=== PATIENT | female | born 1985 | race Caucasian/White ===

== ENCOUNTER 2018-11-13 14:30 | Emergency (ER) | payer MEDICAID, OTHER ==
[~2018-11-13] VITALS: Ht 157.5 cm; Wt 64.7 kg
[2018-11-13 14:35] VITALS: Ht 157.5 cm; Wt 64.7 kg
[2018-11-13] MEDS ORDERED: ACETAMINOPHEN 325 MG TAB PO STA (15:08)
[2018-11-13 17:53] VITALS: BP 117/65; PULSE 71; RESP 18
--- NOTE | 2018-11-13 17:57 | ERD ---
ER Documentation Chief Complaint Chief Complaint INTERMITTENT SHARP PELVIC PAIN SINCE THIS MORNING; 6-WKS HPI This is a 33-year-old female patient who presents emergency room with complaint of sharp vaginal pain, back pain, nausea starting today. Patient is 6 weeks . Discovered 2 [address] care [address] Dr. Hare at [facility]. Patient denies vaginal bleeding, fever, abd pain. Denies dy suria. Patient states her last , 12 years ago, resulted in labor starting at 3 months gestation requiring frequent hospitalizations. First child was born at full-term without complications. LMP: 09/28/18 BETHANY: 07/05/18 ROS All systems reviewed and are negative except as per history of present illness. Allergies Allergies: Coded Allergies: No Known Allergy (Unverified Allergy, Unknown, 07/02/06) PMhx/Soc Medical and Surgical Hx: pt denies Medical Hx Hx Alcohol Use: No Hx Substance Use: No Hx Tobacco Use: No Smoking Status: Never smoker FmHx Family History: No diabetes, No coronary disease, No other Physical Exam Vitals Vital Signs Date Temp Pulse Resp B/P (MAP) Pulse Ox O2 O2 Flow FiO2 Time Delivery Rate 11/13/18 71 18 117/65 99 Room Air 17:53 (82) 11/13/18 99.1 75 16 115/61 99 14:35 (79) Physical Exam Const: No acute distress Head: Atraumatic Eyes: Normal Conjunctiva, PERRL ENT: Normal External Ears, Nose and Mouth. Pharynx pink, moist, no lesions or exudates. Neck: Full range of motion. No meningismus. Lymphadenopathy Resp: Clear to auscultation bilaterally Cardio: Regular rate and rhythm, no murmurs Abd: Soft, non distended. Normal bowel sounds. No pain to palpation. Skin: No petechiae or rashes Back: No midline or flank tenderness, no CVT tenderness, no spinal tenderness Ext: No cyanosis, or edema Neur: Awake and alert Psych: Normal Mood and Affect Result Diagram: 11/13/18 1515 11/13/18 1515 Results 24 hrs Laboratory Tests Test 11/13/18 15:15 White Blood Count 11.2 10^3/ul Red Blood Count 4.09 10^6/ul Hemoglobin 12.6 g/dl Hematocrit 38.4 % Mean Corpuscular Volume 93.9 fl Mean Corpuscular Hemoglobin 30.8 pg Mean Corpuscular Hemoglobin Concent 32.8 g/dl Red Cell Distribution Width 12.5 % Platelet Count 256 10^3/UL Mean Platelet Volume 10.6 fl Immature Granulocytes % 0.400 % Neutrophils % 74.0 % Lymphocytes % 15.3 % Monocytes % 8.7 % Eosinophils % 1.2 % Basophils % 0.4 % Nucleated Red Blood Cells % 0.0 /100WBC Immature Granulocytes # 0.040 10^3/ul Neutrophils # 8.3 10^3/ul Lymphocytes # 1.7 10^3/ul Monocytes # 1.0 10^3/ul Eosinophils # 0.1 10^3/ul Basophils # 0.0 10^3/ul Nucleated Red Blood Cells # 0.0 10^3/ul Urine Color YELLOW Urine Clarity SLIGHTLY CLOUDY Urine pH 6.0 Urine Specific [place] 1.013 Urine Ketones TRACE mg/dL Urine Nitrite NEGATIVE mg/dL Urine Bilirubin NEGATIVE mg/dL Urine Urobilinogen NEGATIVE mg/dL Urine Leukocyte Esterase TRACE Ken/ul Urine Microscopic RBC 2 /HPF Urine Microscopic WBC 5 /HPF Urine Squamous Epithelial Cells MODERATE /HPF Urine Hemoglobin 1+ mg/dL Urine Glucose NEGATIVE mg/dL Urine Total Protein NEGATIVE mg/dl Sodium Level 137 mmol/L Potassium Level 3.6 mmol/L Chloride Level 104 mmol/L Carbon Dioxide Level 24 mmol/L Anion Gap 9 Blood Urea Nitrogen 12 mg/dl Creatinine 0.57 mg/dl Est Glomerular Filtrat Rate mL/min > 60 mL/min Glucose Level 85 mg/dl Calcium Level 8.7 mg/dl Beta HCG, Quantitative 84187.0 mIU/ml Current Medications Medications Dose Sig/Ling Start Time Status Last (Trade) Ordered Route PRN Stop Time Admin Dose Reason Admin 650 mg ONCE STAT 11/13/18 DC 11/13/18 Acetaminophen PO 15:08 15:15 (Tylenol 11/13/18 15:12 Tab) Procedures/MDM PROCEDURES/MDM DIAGNOSTIC IMAGING: Read by radiologist. OB US IMPRESSION: 1. Single live intrauterine fetus which by ultrasound corresponds to a gesta tional age of 6 weeks 5 days plus or minus 3 weeks. The estimated date of delivery based on today's sonogram is 07/04/2019. 2. A 2.9 x 2.6 x 1.9 cm intramural fibroid is seen within the anterior uterine fundus. 3. A 2.5 cm in maximal diameter left ovarian corpus lutein cyst is evident. The right ovary appears normal. Vascular flow is demonstrated in each ovary on Doppler. 4. No adnexal mass or free fluid is identified. LAB INTERPRETATION: No anemia, no electrolyte imbalance, no leukocytosis, no elevated transaminase, urine without abnormal levels of ketones, nitrates, leukocytes, hemoglobin. Beta hCG within limits for gestation. -Medications: Tylenol. Patient tolerated medication well with no adverse reactions. Patient reported improvement in pain. MDM: Patient remained stable throughout the ER course. Differential includes early normal , ectopic , failed . She will discharged home with recommendations for 2-day recheck of hormones to further evaluate condition. She is to return sooner for fevers, hemorrhaging, new worsening symptoms. Current signs or symptoms do not suggest appendicitis, acute surgical abdomen, additional concerning signs or symptoms or conditions. The patient was stable with no new complaints during the ER course. Clinically, there is no current evidence to suggest meningitis, sepsis, acute abdomen, pneumonia, stroke , acute coronary syndrome, pulmonary embolism, aortic dissection or any other emergent condition appearing to require further evaluation or hospitalization. Patient counseled regarding my diagnostic impression and care plan. Prior to discharge all questions answered. Pt agrees with treatment plan and understands strict return precautions. Pt is instructed to follow up with OB within 24-48 hours. Precautionary instructions provided including instructions to return to the ER if not improving or for any worsening or changing symptoms or concerns. DISPOSITION and PLAN: The patient has been discharge home to follow-up with community physician. Departure Diagnosis: Primary Impression: -related symptom in first trimester Condition: Stable Patient Instructions: : Your First Trimester Changes Referrals: [facility] YOU HAVE RECEIVED A MEDICAL SCREENING EXAM AND THE RESULTS INDICATE THAT YOU DO NOT HAVE A CONDITION THAT REQUIRES URGENT TREATMENT IN THE EMERGENCY DEPARTMENT. FURTHER EVALUATION AND TREATMENT OF YOUR CONDITION CAN WAIT UNTIL YOU ARE SEEN IN YOUR DOCTORS OFFICE WITHIN THE NEXT 1-2 DAYS. IT IS YOUR RESPONSIBILITY TO MAKE AN APPOINTMENT FOR FOLOW-UP CARE. IF YOU HAVE A PRIMARY DOCTOR --you should call your primary doctor and schedule an appointment IF YOU DO NOT HAVE A PRIMARY DOCTOR YOU CAN CALL OUR PHYSICIAN REFERRAL HOTLINE AT IF YOU CAN NOT AFFORD TO SEE A PHYSICIAN YOU CAN CHOSE FROM THE FOLLOWING [facility] [address] [facility] [address] [facility] [facility] [facility] [address] [facility] [address] [facility] [address] [facility] [facility] [address] Additional Instructions: Thank you very much for allowing us to participate in your care. Your health and safety is our top priority at [facility]. Call your primary care doctor TOMORROW for an appointment during the next 2-4 days and bring all the information and medications prescribed. Have prescriptions filled and follow precisely the directions on the label. If the symptoms get worse and your provider is unavailable, return to the Emergency Department immediately. CALVIN ROBERTSON NP Nov 13, 2018 17:57
== END 2018-11-13 17:54 | disposition home or self-care (01) ==
LOC: FTE 14:30
DX: O26.891 Other specified pregnancy related conditions, first trimester (principal); R10.2 Pelvic and perineal pain; O99.89 Other specified diseases and conditions complicating pregnancy, childbirth and the puerperium; M54.9 Dorsalgia, unspecified; O21.9 Vomiting of pregnancy, unspecified; Z3A.01 Less than 8 weeks gestation of pregnancy
CPT/HCPCS: 36415; 76801; 76817; 80048; 81001; 84702; 85025; 86900; 86901; 87086; Z7502; Z7610

== ENCOUNTER 2018-11-22 22:38 | Emergency (ER) | payer OTHER ==
[~2018-11-22] VITALS: Ht 162.6 cm; Wt 63.2 kg
[2018-11-22 22:47] VITALS: Ht 162.6 cm; Wt 63.2 kg
[2018-11-23] MEDS ORDERED: ONDANSETRON 4 MG INJ IV STA (02:14)
[2018-11-23] MEDS ORDERED: SOD CHLORIDE 0.9% 1,000 ML IV STA (02:14)
--- NOTE | 2018-11-23 02:21 | ERD ---
ER Documentation Chief Complaint Chief Complaint VOMIT X'S 2 DAYS, 7 WEEKS PG HPI 33-year-old female with no significant past medical history who is A0 reportedly 7 weeks presenting to the emergency department with com plaints of intermittent nausea and vomiting which began yesterday. She states she had 10 episodes of nonbilious and nonbloody vomiting today. She also reports constipation and hard stools and mild amount of blood in the stool when passing hard stools. She denies any vaginal bleeding, pelvic pain, vaginal discharge, or other symptoms. ROS All systems reviewed and are negative except as per history of present illness. Medications Home Meds Active Scripts Magnesium Citrate* (Magnesium Citrate*) 296 Ml Solution, 296 ML PO ONCE, #2 BOTTLE Prov:RADU CHEN PA-C 11/23/18 Doxylamine/Pyridoxine Hcl (DICLEGIS DR 10-10 MG TABLET) 1 Each Tablet., 1 TAB PO DAILY, #20 TAB Prov:RADU CHEN PA-C 11/23/18 Allergies Allergies: Coded Allergies: No Known Allergy (Unverified Allergy, Unknown, 07/02/06) PMhx/Soc Medical and Surgical Hx: pt denies Medical Hx Hx Alcohol Use: No Hx Substance Use: No Hx Tobacco Use: No FmHx Family History: No diabetes Physical Exam Vitals Vital Signs Date Temp Pulse Resp B/P (MAP) Pulse Ox O2 O2 Flow FiO2 Time Delivery Rate 11/23/18 98.3 68 18 124/65 100 Room Air 05:05 (84) 11/22/18 98.8 79 18 127/60 100 22:47 (82) Physical Exam Const: No acute distress Head: Atraumatic Eyes: Normal Conjunctiva ENT: Normal External Ears, Nose and Mouth. Neck: Full range of motion. No meningismus. Resp: Clear to auscultation bilaterally Cardio: Regular rate and rhythm, no murmurs Abd: Soft, non tender, non distended. Normal bowel sounds. No rebound tenderness or guarding. No McBurney's point tenderness. No pelvic tenderness on palpation. Skin: No petechiae or rashes Back: No midline or flank tenderness Ext: No cyanosis, or edema Neur: Awake and alert Psych: Normal Mood and Affect Result Diagram: 11/23/18 0230 11/23/18 0230 Results 24 hrs Laboratory Tests Test 11/23/18 02:30 11/23/18 02:40 White Blood Count 9.6 10^3/ul Red Blood Count 4.12 10^6/ul Hemoglobin 12.8 g/dl Hematocrit 37.1 % Mean Corpuscular Volume 90.0 fl Mean Corpuscular Hemoglobin 31.1 pg Mean Corpuscular Hemoglobin Concent 34.5 g/dl Red Cell Distribution Width 12.5 % Platelet Count 227 10^3/UL Mean Platelet Volume 11.1 fl Immature Granulocytes % 0.300 % Neutrophils % 74.0 % Lymphocytes % 17.0 % Monocytes % 7.5 % Eosinophils % 0.9 % Basophils % 0.3 % Nucleated Red Blood Cells % 0.0 /100WBC Immature Granulocytes # 0.030 10^3/ul Neutrophils # 7.1 10^3/ul Lymphocytes # 1.6 10^3/ul Monocytes # 0.7 10^3/ul Eosinophils # 0.1 10^3/ul Basophils # 0.0 10^3/ul Nucleated Red Blood Cells # 0.0 10^3/ul Urine Color YELLOW Urine Clarity SLIGHTLY CLOUDY Urine pH 6.0 Urine Specific [place] 1.018 Urine Ketones NEGATIVE mg/dL Urine Nitrite NEGATIVE mg/dL Urine Bilirubin NEGATIVE mg/dL Urine Urobilinogen NEGATIVE mg/dL Urine Leukocyte Esterase NEGATIVE Ken/ul Urine Microscopic RBC 0 /HPF Urine Microscopic WBC 3 /HPF Urine Squamous Epithelial Cells FEW /HPF Urine Mucus FEW /HPF Urine Hemoglobin 1+ mg/dL Urine Glucose NEGATIVE mg/dL Urine Total Protein NEGATIVE mg/dl Sodium Level 143 mmol/L Potassium Level 4.0 mmol/L Chloride Level 106 mmol/L Carbon Dioxide Level 27 mmol/L Anion Gap 10 Blood Urea Nitrogen 11 mg/dl Creatinine 0.62 mg/dl Est Glomerular Filtrat Rate mL/min > 60 mL/min Glucose Level 88 mg/dl Calcium Level 9.9 mg/dl Total Bilirubin 0.4 mg/dl Direct Bilirubin 0.00 mg/dl Indirect Bilirubin 0.4 mg/dl Aspartate Amino Transf (AST/SGOT) 18 IU/L Alanine Aminotransferase (ALT/SGPT) 14 IU/L Alkaline Phosphatase 60 IU/L Total Protein 7.1 g/dl Albumin 4.1 g/dl Globulin 3.00 g/dl Albumin/Globulin Ratio 1.36 Lipase 35 U/L POC Beta HCG, Qualitative POSITIVE Current Medications Medications Dose Sig/Ling Start Time Status Last (Trade) Ordered Route PRN Stop Time Admin Dose Reason Admin Sodium 1,000 ml @ Q1H STAT 11/23/18 DC 11/23/18 Chloride 1,000 mls/hr IV 02:14 11/23/18 02:41 03:13 Ondansetron 4 mg ONCE STAT 11/23/18 DC 11/23/18 HCl (Zofran IV 02:14 11/23/18 02:41 Inj) 02:15 Magnesium 300 ml ONCE ONCE 11/23/18 DC 11/23/18 Citrate PO 02:30 11/23/18 02:42 (Citroma) 02:31 Procedures/MDM 33-year-old female is presenting with signs and symptoms most consistent with hyperemesis gravidarum. Patient had no pelvic tenderness palpation and her vital signs are stable. She had ultrasound here recently which showed an intrauterine uterine with heart tones present. No indication for repeat ultrasound at this time. CBC and CMP were within normal limits. Patient was administered IV Zofran, IV fluids, magnesium citrate in the department with good response. No evidence of ectopic , tubo-ovarian abscess, severe dehydration, acute surgical abdomen, bowel obstruction or other emergencies. Patient stable and appropriate for discharge and further outpatient management after treatment in the department. Patient was advised to return to the department immediately for any new or worsening or concerning symptoms. She was in agreement with the diagnosis, plan company for follow-up, return precautions. Departure Diagnosis: Primary Impression: Hyperemesis gravidarum Condition: RADU Ruff PA-C Nov 23, 2018 02:21
[2018-11-23] MEDS ORDERED: MAGNESIUM CITRATE 300 ML BTL PO ONE (02:30)
[2018-11-23] MEDS ORDERED: DOXY1TAB3 PO (03:45)
[2018-11-23] MEDS ORDERED: MAGN296S40 PO (03:46)
[2018-11-23 05:05] VITALS: BP 124/65; PULSE 68; RESP 18
== END 2018-11-23 05:05 | disposition home or self-care (01) ==
LOC: FTE 22:38
DX: O21.0 Mild hyperemesis gravidarum (principal); Z3A.01 Less than 8 weeks gestation of pregnancy
CPT/HCPCS: 36415; 80053; 81001; 81025; 83690; 85025; 96360; J2405; J7030; Z7502; Z7610

== ENCOUNTER 2018-12-16 06:23 | Emergency (ER) | payer OTHER ==
[~2018-12-16] VITALS: Ht 162.6 cm; Wt 62.7 kg
[~2018-12-16 06:23] MED LIST: ACET325T33 PO; DOXY1TAB3 PO; MAGN296S40 PO
[2018-12-16 06:25] VITALS: BP 112/63; PULSE 71; RESP 20; Ht 162.6 cm; Wt 62.7 kg
[2018-12-16] MEDS ORDERED: ACETAMINOPHEN 500 MG TAB PO STA (08:12)
--- NOTE | 2018-12-16 13:37 | ERD ---
ER Documentation Chief Complaint Chief Complaint pelvic pain/back pain , vaginal spotting - ; LMP 09/28/18 HPI 33-year-old female presenting with vaginal spotting and back pain. Patient states that she is about 11 weeks and last. Is 09/28/2018. G4, . No clots. [facility] is Dr. Hare. Ultrasound was normal prior to today's date. Denies other medical problems. NKDA. Surgical history of jaw surgery. Social history denies ROS All systems reviewed and are negative except as per history of present illness. Medications Home Meds Active Scripts Acetaminophen* (Tylenol*) 325 Mg Tablet, 2 TAB PO Q6 PRN for PAIN AND OR ELEVATED TEMP, #20 TAB Prov:UZMA BHAT PA-C 12/16/18 Magnesium Citrate* (Magnesium Citrate*) 296 Ml Solution, 296 ML PO ONCE, #2 BOTTLE Prov:RADU CHEN PA-C 11/23/18 Doxylamine/Pyridoxine Hcl (SELENE TAMAYO 10-10 MG TABLET) 1 Each Tablet., 1 TAB PO DAILY, #20 TAB Prov:RADU CHEN PA-C 11/23/18 Allergies Allergies: Coded Allergies: No Known Allergy (Unverified Allergy, Unknown, 07/02/06) PMhx/Soc Medical and Surgical Hx: pt denies Medical Hx History of Surgery: Yes (reconstructive jaw sx) Anesthesia Reaction: No Hx Alcohol Use: No Hx Substance Use: No Hx Tobacco Use: No Smoking Status: Never smoker FmHx Family History: No diabetes, No coronary disease, No other Physical Exam Vitals Vital Signs Date Temp Pulse Resp B/P (MAP) Pulse Ox O2 O2 Flow FiO2 Time Delivery Rate 12/16/18 98.6 71 20 112/63 100 06:25 (79) Physical Exam GENERAL: The patient is well-appearing, well-nourished, in no acute distress HEENT: Atraumatic. Conjunctivae are pink. Pupils equal, round, and reactive to light. There is no scleral icterus. Tympanic membranes clear bilaterally. Oropharynx clear. CHEST: Clear to auscultation bilaterally. There are no rales, wheezes or rhonchi. HEART: Regular rate and rhythm. No murmurs, clicks, rubs or gallops. ABDOMEN:Soft, nontender and nondistended. Good bowel sounds. No rebound or guarding. No gross peritonitis. No gross organomegaly or masses. BACK: No midline or flank tenderness. Result Diagram: 12/16/1859 Results 24 hrs Laboratory Tests Test 12/16/18 06:59 White Blood Count 7.0 10^3/ul Red Blood Count 3.94 10^6/ul Hemoglobin 12.2 g/dl Hematocrit 36.5 % Mean Corpuscular Volume 92.6 fl Mean Corpuscular Hemoglobin 31.0 pg Mean Corpuscular Hemoglobin Concent 33.4 g/dl Red Cell Distribution Width 12.5 % Platelet Count 217 10^3/UL Mean Platelet Volume 11.0 fl Immature Granulocytes % 0.600 % Neutrophils % 72.4 % Lymphocytes % 18.7 % Monocytes % 6.9 % Eosinophils % 1.1 % Basophils % 0.3 % Nucleated Red Blood Cells % 0.0 /100WBC Immature Granulocytes # 0.040 10^3/ul Neutrophils # 5.1 10^3/ul Lymphocytes # 1.3 10^3/ul Monocytes # 0.5 10^3/ul Eosinophils # 0.1 10^3/ul Basophils # 0.0 10^3/ul Nucleated Red Blood Cells # 0.0 10^3/ul Urine Color YELLOW Urine Clarity SLIGHTLY CLOUDY Urine pH 6.0 Urine Specific [place] 1.015 Urine Ketones NEGATIVE mg/dL Urine Nitrite NEGATIVE mg/dL Urine Bilirubin NEGATIVE mg/dL Urine Urobilinogen NEGATIVE mg/dL Urine Leukocyte Esterase NEGATIVE Ken/ul Urine Microscopic RBC 1 /HPF Urine Microscopic WBC 2 /HPF Urine Squamous Epithelial Cells FEW /HPF Urine Hemoglobin 1+ mg/dL Urine Glucose NEGATIVE mg/dL Urine Total Protein NEGATIVE mg/dl Beta HCG, Quantitative 52841.0 mIU/ml Current Medications Medications Dose Sig/Ling Start Time Status Last (Trade) Ordered Route PRN Stop Time Admin Dose Reason Admin 1,000 mg ONCE STAT 12/16/18 DC 12/16/18 Acetaminophen PO 08:12 08:15 (Tylenol 12/16/18 08:13 Tab) Procedures/MDM DIAGNOSTIC IMAGING REPORT Patient: OMER ARAUJO : 1985 Age: 33 Sex: F MR #: [id number] DOS: 12/16/18 0646 Ordering MD: FLO BHAT PA-C Location: [facility] Room/Bed: PROCEDURE: US OB. CLINICAL INDICATION: Pelvic pain TECHNIQUE: Transabdominal views of the pelvis are available for review. COMPARISON: 11/13/2018 FINDINGS: There is a single intrauterine gestation with the crown-rump length measuring 5.0 cm and the gestational sac measures 5 cm, corresponding to a gestational age of 11 weeks and 3 days. The heart rate is noted at 146 bpm. The right ovary was not seen. The left ovary measures 4.1 x 2.3 x 2.5 cm. There is a 1.9 cm simple cyst in the left ovary. There is Doppler flow in the left ovary There is no free fluid. RPTAT: AA IMPRESSION: Single live intrauterine with an estimated gestational age of 11 weeks and 3 days, based on ultrasound measurements. BETHANY based on ultrasound measurements is 07/04/19. MDM: 33-year-old female presenting with vaginal spotting. Patient's blood work and imaging is within normal limits. Urine does not show signs of infection. Patient states her pain is located along her back extending on her buttock and I believe patient is experiencing sciatic pain. Patient is discharged with strict ER precautions and told to follow-up with primary care within 1 to 2 days for close evaluation. Patient is told symptoms change or worsen to return immediately to the ER. I recommend patient to follow-up with [facility] for further evaluation. All questions answered at discharge Departure Diagnosis: Primary Impression: Vaginal bleeding Condition: Stable Patient Instructions: Possible Miscarriage (Threatened ) Referrals: [facility] [place] [id number] [facility] [address] [place] [address] [phone] OFFICE FAX MICHELLE CATALAN [address], [place] [phone] [address]. AGUILAR [place] [address] [place], [place] [phone] WESLY PHILLIPS [address] [facility], [address] [address] [address] [address] [place], [place] [phone] [facility] [address] [place], [place] [phone] [address] [facility] [phone] - DR ANN JESSIE [address], [facility] [id number] [phone] RITTER, JENNIFER [address] [facility]. [address], [facility] [address] [address], [facility] [address] [place], [place] [phone] Additional Instructions: FOLLOW UP WITH YOUR PRIMARY CARE PHYSICIAN TOMORROW.Return to this facility if you are not improving as expected. UZMA BHAT PA-C Dec 16, 2018 13:37
== END 2018-12-16 09:11 | disposition home or self-care (01) ==
LOC: FTE 06:23
DX: O26.851 Spotting complicating pregnancy, first trimester (principal); R10.2 Pelvic and perineal pain; Z3A.11 11 weeks gestation of pregnancy
CPT/HCPCS: 36415; 76801; 81001; 84702; 85025; 86900; 86901; Z7502; Z7610

== ENCOUNTER 2019-01-08 21:30 | Emergency (ER) | payer OTHER ==
[~2019-01-08] VITALS: Ht 162.6 cm; Wt 63.0 kg
[~2019-01-08 21:30] MED LIST changes: +CEPH-443 PO
[2019-01-08 21:33] VITALS: BP 114/61; PULSE 70; RESP 18; Ht 162.6 cm; Wt 63.0 kg
== END 2019-01-08 22:57 | disposition home or self-care (01) ==
LOC: FTE 21:30
DX: O99.89 Other specified diseases and conditions complicating pregnancy, childbirth and the puerperium (principal); M54.5 Low back pain; R10.30 Lower abdominal pain, unspecified; Z3A.14 14 weeks gestation of pregnancy
CPT/HCPCS: 81003; 87086; 99283

== ENCOUNTER 2019-02-01 07:51 | Emergency (ER) | payer OTHER ==
[~2019-02-01] VITALS: Ht 162.6 cm; Wt 62.0 kg
[2019-02-01 07:54] VITALS: BP 128/72; PULSE 78; RESP 18; Ht 162.6 cm; Wt 62.0 kg
[2019-02-01] MEDS ORDERED: ACETAMINOPHEN 325 MG TAB PO STA (08:10)
== END 2019-02-01 10:16 | disposition home or self-care (01) ==
LOC: FTE 07:51
DX: O23.42 Unspecified infection of urinary tract in pregnancy, second trimester (principal); R10.2 Pelvic and perineal pain; Z3A.18 18 weeks gestation of pregnancy
CPT/HCPCS: 36415; 76805; 81001; 84702; 85025; 86900; 86901; Z7502; Z7610

== ENCOUNTER 2019-03-11 14:36 | Outpatient (CLI) | payer OTHER ==
[~2019-03-11] VITALS: Ht 162.6 cm; Wt 65.8 kg
[2019-03-11 15:04] VITALS: Ht 162.6 cm; Wt 65.8 kg
== END 2019-03-11 18:30 | disposition home or self-care (01) ==
LOC: OBT 14:36 → L-D 14:36 → OBT 18:30
PROVIDERS: ATTEND Obstetrics & Gynecology
DX: O26.892 Other specified pregnancy related conditions, second trimester (principal); Z3A.23 23 weeks gestation of pregnancy; R10.2 Pelvic and perineal pain
CPT/HCPCS: 76705; 76815; 76817; 80053; 81001; 85025; Z7500; 81003; G0463